=== PATIENT | male | born 1955 | race Caucasian/White ===

== ENCOUNTER 2017-10-25 08:40 | Emergency (ER) | payer BC, OTHER ==
[~2017-10-25] VITALS: Ht 172.7 cm; Wt 100.3 kg
[2017-10-25] MEDS ORDERED: FLEXERIL10 MG PO (11:26)
[2017-10-25 11:40] VITALS: BP 92/64
== END 2017-10-25 11:43 | disposition home or self-care (01) ==
LOC: EME 08:40
DX: M25.561 Pain in right knee (principal); Q89.8 Other specified congenital malformations
CPT/HCPCS: 73564; 99281; 99284